=== PATIENT | male | born 1955 | race Caucasian/White ===

== ENCOUNTER 2021-08-18 08:15 | Emergency (ER) | payer BC, OTHER ==
[~2021-08-18] VITALS: Ht 185.4 cm; Wt 104.3 kg
--- NOTE | 2021-08-18 09:35 | NUR ---
Flu and COVID swabs collected and sent to LAB.
[2021-08-18 10:22] VITALS: BP 90/60
[2021-08-18] MEDS ORDERED: AZIT250T PO (10:22)
[2021-08-18] MEDS ORDERED: ALBU2.5V13 NEB (10:22)
[2021-08-18] MEDS ORDERED: BENZ-13 PO (10:22)
[2021-08-18] MEDS ORDERED: FLUT1DIS27 INH (10:22)
--- NOTE | 2021-08-18 10:24 | NUR ---
Patient discharged to home in stable condition. Written and verbal after care instructions given. Patient verbalizes understanding of instructions. Stressed follow up or return to ER for worsening s/s.
== END 2021-08-18 10:24 | disposition home or self-care (01) ==
LOC: ER 08:30
DX: J20.9 Acute bronchitis, unspecified (principal); B96.89 Other specified bacterial agents as the cause of diseases classified elsewhere; Z20.822 Contact with and (suspected) exposure to COVID-19
CPT/HCPCS: 87400; A4663